=== PATIENT | female | born 1980 | race Caucasian/White ===

== ENCOUNTER 2024-08-29 23:01 | Emergency (ER) | payer OTHER, SELFPAY ==
[2024-08-29 23:04] VITALS: BP 135/64; PULSE 88; TEMP 36.8; O2SAT 98; BMI 46.1
--- NOTE | 2024-08-29 23:21 | ED_ITS ---
HPI - Extremity Problem General Chief complaint: Extremity Problem, Nontraumatic Stated complaint: Lower Pain Time Seen by Provider: 08/29/24 23:05 Source: patient Mode of arrival: walk-in Limitations: no limitations History of Present Illness HPI Narrative: This 43-year-old female who has had cellulitis 7 times in the past presents for evaluation of a tender erythematous area on the anterior surface of her right lower leg. The patient states the symptoms have been present for the past 4 days. It started as a small red area and has increased in size. Her has drawn a line around it. She states in the past 24 hours it has grown quite a bit and almost doubled in size. She is also having intermittent fevers. She denies any chest pain or shortness of breath. She states she feels that her leg is now swollen. She denies any body aches. She states she was last on Cipro and doxycycline. She has been septic in the past from cellulitis and is concerned that if she does not get it taken care of soon that she can end up becoming septic again. Related Data Home Medications ?Medication ?Instructions ?Recorded ?Confirmed fluticasone 250 mcg-salmeterol 50 inhalation 08/29/24 mcg/dose blistr powdr for inhalation mometasone-formoterol HFA 200 inhalation 08/29/24 mcg-5 mcg/actuation aerosol inhaler (Dulera) Allergies Allergy/AdvReac Type Severity Reaction Status Date / Time No Known Drug Allergies Allergy Verified 08/29/24 23:09 Review of Systems ROS Status of ROS 10 or more systems reviewed and unremark able except as noted in history and below PFSH PFSH Social History Little interest or pleasure in doing things: not at all Feeling down, depressed, or hopeless: not at all Exam Narrative Exam Narrative: Vital signs and Nursing Notes reviewed: Patient is afebrile with a normal pulse, normal blood pressure, she is not hypoxic with pulse ox of 98% on room air General: Awake, alert, oriented, no acute distress, lying comfortably on the stretcher HEENT: Normocephalic atraumatic, mucous membranes are moist and pink, eyes are clear, normal conjunctiva, vision is grossly intact Chest: Lungs are clear to auscultation with good air entry, there is no wheezing rhonchi or rales appreciated no accessory muscle use, patient is speaking in complete sentences-no chest wall tenderness to palpation CVS: Regular rate and rhythm S1-S2, no murmurs rubs or gallops, pulses are brisk and equal bilaterally ABD: Soft, nondistended, nontender, no rebound guarding or rigidity, bowel sounds are normal, no pulsatile masses appreciated Extremities: Moving all extremities, on the right anterior lower leg is an area of erythema that is circled by a magic marker. Is mildly warm. I do not appreciate any skin breakdown in this area. There is no fluctuance. There is no posterior calf swelling, tenderness indurated cords. Foot is warm and sensate with normal pulses Skin: Normal in appearance without rash,pallor, petechiae or purpura Neuro: No focal deficits Constitutional Vital Signs, click to edit/add: Last Vital Signs Temp 98.2 F 08/29/24 23:04 Pulse 88 08/29/24 23:04 Resp 18 08/29/24 23:04 BP 135/64 08/29/24 23:04 Pulse Ox 98 08/29/24 23:04 O2 Del Method Room Air 08/29/24 23:04 Course Vital Signs Vital signs: Vital Signs Temperature 98.2 F 08/29/24 23:04 Pulse Rate 88 08/29/24 23:04 Respiratory Rate 18 08/29/24 23:04 Blood Pressure 135/64 08/29/24 23:04 Pulse Oximetry 98 08/29/24 23:04 Oxygen Delivery Method Room Air 08/29/24 23:04 Temperature 98.2 F 08/29/24 23:04 Pulse Rate 88 08/29/24 23:04 Respiratory Rate 18 08/29/24 23:04 Blood Pressure 135/64 08/29/24 23:04 Pulse Oximetry 98 08/29/24 23:04 Oxygen Delivery Method Room Air 08/29/24 23:04 MDM - Extremity (Nontraumatic) MDM Narrative Medical decision making narrative: This 43-year-old female who has had lower extremity cellulitis in the past presents for evaluation of 4 days of redness and now some swelling on the anterior surface of her right lower leg. She is concerned that she is developing cellulitis. She states she is also having intermittent low-grade fevers. She denies any chest pain or shortness of breath. Her vital signs are stable. She does have an approximately 6 x 8 cm area of erythema on the anterior surface of the right lower leg. The leg is otherwise normal in appearance with no calf swelling or tenderness. Feet are warm and sensate. There is no skin breakdown or sign of ulcers on her feet. Pulses are brisk and equal. Her vital signs are stable and she is afebrile with normal pulse and blood pressure in the emergency department. There is no signs of sepsis and she does not appear to be toxic. She was started on oral doxycycline in the emergency department and will be given prescriptions for doxycycline to use for the next 10 days. She was encouraged to follow-up closely with her family physician and return to the emergency department for worsening symptoms outpatient treatment failure or any concerns. Discharge Plan Discharge Chief Complaint: Extremity Problem, Nontraumatic Clinical Impression: Cellulitis of left lower extremity Patient Disposition: Home, Self-Care Time of Disposition Decision: 23:18 Condition: Good Prescriptions / Home Meds: No Action fluticasone propion-salmeterol 250-50 mcg/dose blister with device INHALATION Dulera 200-5 mcg/actuation HFA aerosol inhaler INHALATION Print Language: [place] Instructions: Cellulitis (ED) Referrals: Papo Medina MD [Primary Care Provider] - 1 week
[2024-08-29] MEDS: DOXYCYCLINE MONOHYDRATE 100 MG CAPSULE PO (23:25)
== END 2024-08-29 23:35 | disposition home or self-care (01) ==
PROVIDERS: Emergency Provider Emergency Medicine; PCP Family Medicine
DX: L03.115 Cellulitis of right lower limb (principal)
CPT/HCPCS: 99283